=== PATIENT | female | born 1975 | race Caucasian/White ===

== ENCOUNTER 2020-08-14 07:27 | Outpatient (CLI) | payer OTHER | END 2020-08-14 07:28 | disposition home or self-care (01) | LOC: CSHNM 07:27 | PROVIDERS: ATTEND Internal Medicine Gastroenterology | DX: R10.13 Epigastric pain (principal); K82.4 Cholesterolosis of gallbladder; R93.2 Abnormal findings on diagnostic imaging of liver and biliary tract | CPT/HCPCS: 78227; A9537 ==

== ENCOUNTER 2021-08-23 10:13 | Emergency (ER) | payer OTHER ==
[2021-08-23 11:02] LABS: #Basophils 0.1 10x3/uL (0.0-0.2); #Eosinphils 0.2 10x3/uL (0.0-0.5); #Monocytes 0.5 10x3/uL (0.0-1.1); #Neutrophils 2.8 10x3/uL (1.5-8.4); %Basophils 1.4 % (0.0-2.0); %Eosinophils 3.1 % (0.0-6.0); %Lymphocytes 39.2 % (18.0-47.0); %Monocytes 7.9 % (0.0-10.0); %Neutrophils 48.2 % (40.0-75.0); Hemoglobin 14.3 g/dL (12.0-15.5); Mean Corpuscular HGB CONC 34.5 g/dL (32.0-36.0); Mean Corpuscular Volume 89.8 fl (81.6-98.3); Mean Platelet Volume 9.9 fl (7.4-10.4); Platelet Count 241 10x3/uL (150-450); RBC Distribution Width 12.4 % (11.5-14.5); Red Blood Cell (RBC) Count 4.62 10x6/uL (3.90-5.03); White Blood Cell (WBC) Count 5.8 10x3/uL (3.5-10.5)
[2021-08-23 11:18] LABS: ALT (SGPT) 28 U/L (8-55); AST (SGOT) 17 U/L (5-34); Albumin 4.3 g/dL (3.5-5.0); Alkaline Phosphatase 74 U/L (40-110); Anion Gap 13 mmol/L (10-20); BUN (Urea Nitrogen) 13 mg/dL (7.0-18.7); Bilirubin, Total 0.5 mg/dL (0.2-1.2); Calc. Creatinine Clearance 0 mL/min (70-130); Calcium 9.1 mg/dL (7.8-10.44); Carbon Dioxide 26 mmol/L (22-29); Chloride 105 mmol/L (98-107); Globulin 2.7 g/dL (2.4-3.5); Glucose 118 mg/dL (70-105); Potassium 3.5 mmol/L (3.5-5.1); Sodium 140 mmol/L (136-145)
[2021-08-23 14:52] LABS: Troponin I Less than 0.010 ng/mL (< 0.028)
== END 2021-08-23 16:10 | disposition home or self-care (01) ==
LOC: CSHERS 10:13
DX: R07.9 Chest pain, unspecified (principal); M25.512 Pain in left shoulder; E78.5 Hyperlipidemia, unspecified
CPT/HCPCS: 36415; 71045; 80053; 84484; 85025; 93005